=== PATIENT | male | born 1945 | race Caucasian/White ===

== ENCOUNTER → 2019-04-11 10:47 | Outpatient (CLI) | payer MEDICARE, SELFPAY ==
--- NOTE | 2019-04-11 10:51 | CA_ITS ---
APPROVED REPORT Exam: Pharmacologic Technologist: Tracey Alfaro, Ht: 5 ft 4 in Wt: 171 lbs BSA: 1.83 m2 HR: 70 bpm BP: 107/65 mmHg Medical History Medical History: HTN,, Hyperlipidemia Medications: Metoprolol,,,,, Losartan,,,,, Atorvastatin,,,,, Ranitidine,,,,, TAMSULOSIN,,,,, Carbidopa,,,,, LoraDATINE,,,,, Cardiac Risk Factors: Hyperlipidemia, HTN, FHX of CAD Stress Test Details Test: LEXISCAN HR Resting HR: 77 bpm Max Heart Rate (APMHR): 146 bpm Max HR Achieved: 103 bpm Target HR (85% APMHR): 124 bpm % of APMHR: 70 Recovery HR: 74 bpm BP Resting BP: 107.0/65.0 mmHg Max BP: 107.0/65.0 mmHg Recovery BP: 99.0/61.0 mmHg ECG Resting ECG: NSR,RBBB CANNOT R/O OLD INFERIOR DE Clinical Exercise duration: 04:41 min Highest Stage Achieved: Exercise capacity: 1.0 METs Stress ECG Conclusion DURING INFUSION OF LEXISCAN NO COMPLAINTS OF ANY SIDE EFFECTS. RARE PAC. NO SIGNIFICANT ST-T CHANGES. UNREMARKABLE LEXISCAN STRESS. MYOVIEW IMAGES REPORTED SEPARATELY. Electronically signed by : gS Julian, 04/11/2019 15:49:55
--- NOTE | 2019-04-11 10:51 | NM_ITS ---
APPROVED REPORT Exam: Nuclear Stress Test Indication: ABN EKG,SOB Patient Location: Outpatient Stress Tech: Estela Alfaro NM Tech:Vandana Hurley ELIJAHAj RT(R)(N) Ht: 5 ft 4 in Wt: 171 lbs HR: 70 bpm BP: 107/65 mmHg BSA: 1.83 m2 BMI: 29.3 History: ABN EKG,SOB Procedure: Patient received a 0.4 mg of intravenous Lexiscan, resting heart rate 70 bpm, resting blood pressure 107/65 mmHg, with Lexiscan maximum heart rate achived was 81 bpm which is Less than 85 % of the maximum predicted heart rate and blood pressure was 85/43 mmHg. Electrocardiogram Sinus rhythm, right ventricular conduction delay, poor R wave progression, low voltage QRS complexes. With Lexiscan there is less than 1.[address] segment depression noted from the baseline EKG. The EKG portion of the Lexiscan Myoview is nondiagnostic. Cardiac Stress and Resting SPECT Images: Cardiac Stress and Resting SPECT images were obtained using technetium 99m Myoview 32.4 mCi stress and 10.72 mCi at rest. Gated SPECT with analysis of segmental wall motion and calculation of the ejection fraction also done. Cardiac stress and resting SPECT images show uniform myocardial activity without segmental perfusion abnormality, computer derived ejection fraction is 61% with no regional wall motion abnormality, right ventricle is normal size and contractility. Conclusion: 1. The EKG portion of the Lexiscan Myoview is nondiagnostic. 2. No scintigraphic evidence of reversible ischemia seen, computer derived ejection fraction is 61% with no regional wall motion abnormality, right ventricle is normal size and contractility. 3. Normal Lexiscan Myoview study. Electronically signed by : Sg Julian, 04/11/2019 15:54:44
--- NOTE | 2019-04-11 10:51 | CA_ITS ---
APPROVED REPORT EXAM: Comprehensive 2D, Doppler, and color-flow Echocardiogram Turnaround Engineer: Erika Pearson RT(R) Ht: 5 ft 7 in Wt: 172lbs BSA: 1.90 BP: 105/68 mmHg Indications: HTN, hyperlipidemia, Abn EKG, SOA, history of Afib 2D Dimensions LVOT 2.10 cm (M/F) 1.5-2.5 M-Mode Dimensions RVDd 1.60 cm (0.9-2.6) LA Diam 2.10 cm (1.9-4.0) LVDd 4.80 cm (3.5-5.7) Ao Diam 3.30 cm (2.0-3.7) LVDs 3.50 cm (3.5-5.7) AV Cusp 2.50 cm (1.5-2.6) IVSd 1.00 cm (0.6-1.1) PWd 0.80 cm (0.6-1.1) EF (Teich) 52.90% FS 27.10% EDV (Teich) 108.00 mL ESV (Teich) 50.90 mL LV Diastology E/A Ratio 0.5 MED E' 5.26 (< 7 cm/sec) E'/MED E' Ratio 6.40 (>14) LAT E' 9.36 (<10 cm/sec) E/LAT E' Ratio 3.60 (>14) Mitral Valve MV E Max Salvatore. 33.50 (40-130 cm/s) MV A Velocity 70.60 (40-130 cm/s) E/A Ratio 0.50 Left Ventricle Left atrium is normal size, left ventricle is normal size, mild concentric left ventricular hypertrophy, visually estimated ejection fraction 50% with no regional wall motion abnormality. Grade 1 diastolic dysfunction seen without tissue Doppler evidence of raise left atrial pressure. Right Ventricle Right atrium and right ventricular normal size and contractility. Aortic Valve Aortic valve is minimally thickened and fibrosed, there is no aortic stenosis, there is mild aortic insufficiency. Mitral Valve Mitral valve is grossly normal, there is mild mitral regurgitation. Tricuspid Valve Tricuspid valve is grossly normal, there is mild tricuspid regurgitation. Pulmonic Valve Pulmonic valve is poorly visualized. Great Vessels Aortic root is normal size. Pericardium No significant pericardial effusion noted. Conclusion 1. Mildly in the left atrium, normal left ventricular size, mild concentric left ventricular hypertrophy, visually estimated ejection fraction of 50% with no regional wall motion abnormality, grade 1 diastolic dysfunction seen without tissue Doppler evidence of raise left atrial pressure. 2. Thickened and calcified aortic valve without aortic stenosis, there is mild aortic insufficiency. 3. Mild mitral and tricuspid regurgitation 4. No significant pericardial effusion noted. Electronically signed by : Sg Julian, 04/11/2019 15:46:02
[2019-04-11 12:09] LABS: Basophils # 0.1 K/mm3 (0-0.2); Eosinophils # 0.4 K/mm3 (0.0-0.4); Eosinophils % 3.9 % (0.1-12.0); Hemoglobin 14.7 g/dL (14.1-18.0); Lymphocytes # 2.6 K/mm3 (0.7-4.5); Lymphocytes % 28.3 % (10-50); Mean Corpuscular Hemoglobin 30.8 pg (27.0-31.2); Mean Corpuscular Volume 96.1 fl (80-94); Mean Platelet Volume 7.9 fl (7.4-10.4); Monocytes # 0.6 K/mm3 (0.1-1.0); Monocytes % 6.9 % (1.7-9.3); Neutrophils # 5.5 K/mm3 (1.8-7.8); Neutrophils % 59.9 % (37.0-80.0); Platelet Count 295 K/mm3 (142-424); Red Blood Count 4.79 M/mm3 (4.60-6.20); Red Cell Distribution Width 13.6 % (11.5-17.5); White Blood Count 9.2 K/mm3 (4.8-10.8)
[2019-04-11 12:56] LABS: Anion Gap 11.2 mEq/L (5-15); Blood Urea Nitrogen 22 mg/dL (7-18); Calcium 8.9 mg/dL (8.5-10.1); Carbon Dioxide 30 mmol/L (21.0-32.0); Chloride 102 mmol/L (98-107); Creatinine,Serum 0.86 mg/dL (0.70-1.30); Estimated Glomerular Filt Rate 87 ml/min (>60); GFR (African American) 105 ML/MIN (>60); Glucose 91 mg/dL (74-106); Potassium 4.2 mmoL/L (3.5-5.1); Sodium 139 mmol/L (136-145)
--- NOTE | 2019-04-11 13:48 | HMH.ITSHM ---
Current Home Medications as stated by this patient Yao Smith or airport representative. [] ATORVASTATIN LORATODINE LOSARTAN METOPROLOL
== END ==
PROVIDERS: PCP Physician Assistant; Visit Provider Nurse Practitioner Family
DX: E78.5 Hyperlipidemia, unspecified (principal); I10 Essential (primary) hypertension; I48.0 Paroxysmal atrial fibrillation; R94.31 Abnormal electrocardiogram [ECG] [EKG]; K21.9 Gastro-esophageal reflux disease without esophagitis
CPT/HCPCS: 36415; 78452; 80048; 85025; 93017; 93306; A9502; J2785